=== PATIENT | male | born 1950 | race Caucasian/White ===

== ENCOUNTER 2018-09-16 16:04 | Inpatient (IN) ==
[2018-09-16] MEDS ORDERED: SILVADENE CREAM TP STA (16:44)
[2018-09-16 18:41] VITALS: BMI 39.4
[2018-09-16] MEDS ORDERED: [UNRECOGNIZED DRUG - MIXTURE] IV SCH (20:30)
[2018-09-16] MEDS ORDERED: SILVER SULFADIAZINE TP SCH (20:30)
[2018-09-16] MEDS ORDERED: ROCEPHIN 2 GM/50 ML D5W 2 GM in PREMIX 50 ML D5W 1 BAG IV SCH (20:30)
[2018-09-16] MEDS ORDERED: CEFTRIAXONE 2 GM/50 ML IV ONE (20:35)
[2018-09-16] MEDS ORDERED: DEXTROSE IV ONE (20:35)
[2018-09-16] MEDS ORDERED: POTASSIUM CHLORIDE 10 MEQ VIAL- ADDITIVE ONLY IV ONE (20:38)
[2018-09-16] MEDS: VANCOMYCIN 1 GM in SODIUM CHLORIDE 250 ML IV SCH (21:51)
[2018-09-16] MEDS: OXYCODONE PO PRN (23:18)
[2018-09-17] MEDS ORDERED: SILVADENE CREAM TP ONE (00:29)
[2018-09-17] MEDS: VANCOMYCIN 1 GM in SODIUM CHLORIDE 250 ML IV SCH (05:04)
[2018-09-17] MEDS ORDERED: [UNRECOGNIZED DRUG - MIXTURE] IV SCH (07:30)
[2018-09-17] MEDS: SILVADENE CREAM TP SCH (12:47)
[2018-09-17] MEDS: OXYCODONE PO PRN ×2 (13:00→17:18)
[2018-09-17] MEDS: VANCOMYCIN 1.5 GM in SODIUM CHLORIDE 500 ML IV SCH (17:11)
[2018-09-17] MEDS: ROCEPHIN 2 GM/50 ML D5W 2 GM in PREMIX 50 ML D5W 1 BAG IV SCH (20:16)
[2018-09-17] MEDS ORDERED: LOVENOX SUBCUT STA (22:54)
[2018-09-18] MEDS: VANCOMYCIN 1.5 GM in SODIUM CHLORIDE 500 ML IV SCH ×2 (04:41→17:06)
[2018-09-18] MEDS: SILVADENE CREAM TP SCH (08:16)
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
--- NOTE | 2018-09-18 13:01 | PN ---
DATE OF SERVICE: 09/17/18 SUBJECTIVE: 67 year old male was admitted to the hospital because of moderate fever of 102.6 with 2nd degree shaikh some deeper on both legs more or less circumferential. Legs were treated with Silvadene cream. VITALS: Fever 99.2, pulse 78, blood pressure 129/81, respiratory rate 18 and oxygen saturation 97 at room air. Debridement with carried aseptically. The skin was removed using curved scissors including curved iris scissors. The area was irrigated with sterile water and sterile saline. After the debridement and irrigation was done the nurse was instructed to apply Silvadene in all the area that are open. This patient will be carried on the same antibiotics until we obtain the culture and sensitivity. The patient's appetite yesterday showed a 100% of supper. 100% of breakfast today and 100% lunch. LUNGS: Clear to auscultation. LOWER EXTREMITIES: Pedal pulses were present anteriorly. The patient did receive Tetanus Diphtheria booster in the emergency room . He was prescribed Cephalexin to go home. He took one dose on 09/16/18. MTDD
[2018-09-19] MEDS: ROCEPHIN 2 GM/50 ML D5W 2 GM in PREMIX 50 ML D5W 1 BAG IV SCH (00:22)
[2018-09-19] MEDS: LOVENOX SUBCUT SCH ×2 (00:22→20:22)
[2018-09-19] MEDS: VANCOMYCIN 1.5 GM in SODIUM CHLORIDE 500 ML IV SCH (04:54)
[2018-09-19] MEDS: OXYCODONE PO PRN (06:42)
[2018-09-19] MEDS: SILVADENE CREAM TP SCH (08:19)
[2018-09-19] MEDS ORDERED: DILAUDID 1 MG/ML SYRINGE IVP STA ×2 (08:53→09:22)
[2018-09-19] MEDS: SILVADENE CREAM TP PRN ×2 (11:00→17:51)
[2018-09-19] MEDS: OXYCODONE PO SCH ×2 (11:48→17:39)
[2018-09-19] MEDS ORDERED: PHENERGAN SUPP RC PRN (12:35)
[2018-09-19] MEDS: VANCOMYCIN 1 GM in SODIUM CHLORIDE 250 ML IV SCH (17:09)
[2018-09-20] MEDS: VANCOMYCIN 1 GM in SODIUM CHLORIDE 250 ML IV SCH ×2 (00:35→08:00)
[2018-09-20] MEDS: OXYCODONE PO SCH ×4 (00:35→17:12)
[2018-09-20] MEDS: SILVADENE CREAM TP SCH (08:08)
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
[2018-09-20] MEDS ORDERED: INFUVITE ADULT IV ONE (15:41)
[2018-09-20] MEDS: INFUVITE ADULT 10 ML in D5%-1/2NS-KCL 20 MEQ/L IV SOL 1,000 ML IV SCH (15:42)
[2018-09-20] MEDS ORDERED: DEXTROSE IV ONE (21:00)
[2018-09-20] MEDS ORDERED: CEFEPIME 2 GM/50 ML IV ONE (21:00)
[2018-09-20] MEDS ORDERED: OXYCODONE PO STA (22:02)
[2018-09-20] MEDS: MAXIPIME 2 GM/50 ML D5W 2 GM in PREMIX 50 ML D5W 1 BAG IV SCH (22:04)
[2018-09-20] MEDS: LOVENOX SUBCUT SCH (22:05)
[2018-09-21] MEDS: OXYCODONE PO SCH ×4 (01:00→18:03)
[2018-09-21] MEDS ORDERED: INFUVITE ADULT IV ONE ×2 (01:37→12:24)
[2018-09-21] MEDS: INFUVITE ADULT 10 ML in D5%-1/2NS-KCL 20 MEQ/L IV SOL 1,000 ML IV SCH ×2 (01:39→12:31)
[2018-09-21] MEDS ORDERED: CEFEPIME 2 GM/50 ML IV ONE (04:52)
[2018-09-21] MEDS ORDERED: DEXTROSE IV ONE (04:52)
[2018-09-21] MEDS: MAXIPIME 2 GM/50 ML D5W 2 GM in PREMIX 50 ML D5W 1 BAG IV SCH ×3 (04:55→20:35)
[2018-09-21] MEDS ORDERED: PERCOCET 5-325 PO STA (08:40)
[2018-09-21] MEDS ORDERED: OXYCODONE PO STA (08:42)
[2018-09-21] MEDS ORDERED: SILVADENE CREAM TP PRN ×2 (11:00)
--- NOTE | 2018-09-21 11:00 | PN ---
DATE OF SERVICE: 09/20/18 SUBJECTIVE: Today his temperature is 99.7, pulse rate 103, blood pressure 144/86, 02 sat 96 % on room air. This morning I got a call saying that he had spiked a temperature of 100.8. He was having chills in the room and overall has not been feeling good with having some pretty significant pain when he was up to the bathroom with his lower extremities. The nurse reports that he was oozing quite a bit to his lower extremity. He was having a difficult time keeping Silvadene ointment on to his lower extremity. PHYSICAL EXAMINATION: HEENT: Head normocephalic, atraumatic. Eyes: Extraocular muscles are intact. Pupils are equal, round and reactive to light and accommodation. Ears: No lesions. Nose appeared normal. Throat: No exudate or erythema. NECK: Supple. No JVD, no carotid bruit. No lymphadenopathy or thyromegaly. LUNGS: Clear to auscultation. Percussion note normal. Chest symmetrical. HEART: Regular rate and rhythm. S1, S2, no S3. No murmurs. No cyanosis or clubbing. No ascites. Pulses: Dorsalis pedis and posterior tibial pulses +1 to +2 bilaterally. ABDOMEN: Soft. Nontender. Bowel sounds active. No CVA tenderness. No mass felt. EXTREMITIES: No edema. Full range of motion of all extremities, equal. NEUROLOGIC: No focal deficit. Cranial nerves II through XII are grossly intact. No headache, no double vision or headache. SKIN: Not dry. Intact. Turgor - normal. LYMPHATIC: No palpable lymph nodes/no lymphedema. MUSCULOSKELETAL: Normal joints with no swelling. Muscle tone is normal. PLAN: Dr. Fam has ordered an echocardiogram. Blood cultures have been done immediately when the fever was called [place] Spotted Fever. IgG and IGM was also completed this morning. Tick titers were completed and drawn this morning. IV fluids have also been ordered, D5 1/2 NS at 100 mls/hr. As far as labs they were drawn this morning. White count was down to normal 8.78. Hemoglobin 12.9, hematocrit 39.1, platelet count 224. The sodium 140.7, BUN 13.9 , creatinine 1.04. LFTs were normal with exception of alkaline phosphatase of 53.2 which is mildly low. Procalcitonin has been normal at 0.14. Urinalysis was negative with trace hematuria done today. Otherwise it was negative. Vascular and soft tissue ultrasounds were ordered of the lower extremities. The patient refused for these ultrasounds to be completed due to the concern for pain. Dr. Fam does plan to debride the lower extremity blisters and wounds and open wounds to the lower extremities this afternoon. There are several blisters that are intact to the lower extremities. The lower extremities are continuously oozing and draining. There is some Silvadene in place to the lower extremity. There is copious amount of drainage to the lower extremities. TIME SPENT: More than 30 minutes. Plan and coordination of the patient's care discussed in the presence of nurse. BLOSSOM
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
[2018-09-21] MEDS: LOVENOX SUBCUT SCH (20:36)
[2018-09-22] MEDS ORDERED: MAG-OX ONE (00:25)
[2018-09-22] MEDS: MAG-OX PO SCH ×3 (00:27→21:37)
[2018-09-22] MEDS: OXYCODONE PO SCH ×4 (00:27→17:15)
[2018-09-22] MEDS: INFUVITE ADULT 10 ML in D5%-1/2NS-KCL 20 MEQ/L IV SOL 1,000 ML IV SCH (00:55)
[2018-09-22] MEDS: SILVADENE CREAM TP SCH (01:01)
[2018-09-22] MEDS: MAXIPIME 2 GM/50 ML D5W 2 GM in PREMIX 50 ML D5W 1 BAG IV SCH ×3 (05:40→21:36)
[2018-09-22] MEDS ORDERED: SILVADENE CREAM TP SCH (09:00)
[2018-09-22] MEDS: OXYCODONE PO PRN ×2 (15:46→21:43)
[2018-09-22] MEDS: LOVENOX SUBCUT SCH (21:44)
[2018-09-23] MEDS: OXYCODONE PO SCH ×5 (00:50→23:50)
[2018-09-23] MEDS: MAXIPIME 2 GM/50 ML D5W 2 GM in PREMIX 50 ML D5W 1 BAG IV SCH ×2 (04:36→13:17)
[2018-09-23] MEDS: OXYCODONE PO PRN (08:52)
[2018-09-23] MEDS: MAG-OX PO SCH ×2 (08:53→21:27)
[2018-09-23] MEDS ORDERED: OXYCODONE PO STA (15:26)
[2018-09-23] MEDS ORDERED: OXYCONTIN ONE (15:31)
[2018-09-23] MEDS ORDERED: OXYCONTIN PO SCH (16:00)
[2018-09-23] MEDS: LOVENOX SUBCUT SCH (21:28)
[2018-09-24] MEDS: OXYCODONE PO SCH ×3 (05:15→17:19)
[2018-09-24] MEDS: MAG-OX PO SCH ×2 (08:49→21:01)
[2018-09-24 13:57] VITALS: BP 120/79; TEMP 99
[2018-09-24] MEDS ORDERED: OXYCODONE PO STA (20:38)
[2018-09-24] MEDS: LOVENOX SUBCUT SCH (21:00)
[2018-09-24] MEDS ORDERED: MAXIPIME 2 GM/50 ML D5W 2 GM in PREMIX 50 ML D5W 1 BAG IV SCH (22:00)
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
--- NOTE | 2018-09-29 11:45 | PN ---
DATE OF SERVICE: 09/20/18 SUBJECTIVE: The patient's shaikh were debrided today. It took two hours for both legs. Both legs were cleaned with the shower. Sterile 4x4 was passed up and down the leg that shaikh to remove some of the debris. After this was accomplished the patient was then returned to bed with sterile linens. Debridement was carried to the rest of the burned areas. After this was done the burn area was covered with Silvadene and then covered with Telfa and anchored using a Ruben followed by a Coban. Same procedure is done on the left side. It took two hours to do the procedure. The patient tolerated the procedure well. LUNGS: Clear to auscultation HEART: Audible and regular with good tones. The patient's vital signs 09:14pm 09/20/18 showed a temperature 98.8, pulse 94, blood pressure 154/89, respiratory rate 20, oxygen saturation 98% room air. The patient is receiving 2 grams of Cefepime and also Lovenox 40mg SUBCUT. There is some areas of deeper 2nd degree shaikh. There is no signs of any active infection. The patient was encouraged to walk around the room or even outside with the dressing in place. BLOSSOM
--- NOTE | 2018-09-29 13:36 | PN ---
DATE OF SERVICE: 09/21/18 SUBJECTIVE: Debridement was also carried but limited. The area was cleaned using sterile saline that is warm slightly. After debridement Silvadene cream was applied with 4x4 and Ruben and also Coban. It took about an hour to do the procedure. The patient is alert and oriented times four, not dyspneic or tachypneic and no cyanosis. VITALS: Temperature 98, pulse 87, blood pressure 144/89, respiratory rate 18 and oxygen saturation 100 at room air. This patient's temperature has a low grade rise 99.1 otherwise it was normal. Wound looks clean. Some of the areas were picked out and debrided. He still has pain on the areas that are stuck underneath. WILMARD
--- NOTE | 2018-09-29 13:49 | PN ---
DATE OF SERVICE: 09/22/18 SUBJECTIVE: The area again was irrigated with saline and the rest of the skin that is lose was removed. The area was then cleaned further and irrigated with saline and dried. The are was dressed a sterile Ruben. No other dressing was applied and this will be removed tomorrow hoping to remove some of the debris when the Ruben is removed. VITALS: Temperature 98.0, pulse 87, blood pressure 144/89, respiratory rate 18, oxygen saturation 100%. His breakfast 100%, 100% of lung and 100% at supper. LUNGS: Clear to auscultation HEART: Normal sinus rhythm ABDOMEN: Unremarkable. No external signs of infection of the burned area. MTDD
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
--- NOTE | 2018-10-31 13:35 | PN ---
DATE OF SERVICE: 09/22/18 SUBJECTIVE: Today Mr. Ramos is up in the hallway walking. His lower extremities are wrapped. He reports that overall he feels much better. He tells me that Dr. Fam did a debridement last PM around 10pm. LUNGS: Clear HEART: Irregular rate and rhythm His says his lower extremities are still painful but he feels that over all they are improving as he is able to walk up and down the hallway and they feel better because they are wrapped and he does feel that they are looking better. The pain medications do help to control the pain. VITAL SIGNS: Stable, temperature 99.1, pulse rate 95, blood pressure 145/77, respiratory rate 18 and oxygen saturation 97% on room air. The plan at this time is for the patient to shower. I did discuss that with the nurse and to perform a dressing change. Dr. Fam just shortly to perform a dressing change and we maybe discharging the patient home with plans for dressing changes in the office daily. We will see what the patient's lower extremities look like today. BLOSSOM
== END 2018-09-24 21:15 | disposition home or self-care (01) | DRG 935 ==
LOC: ED 16:04 → MEDSURG B 18:10
PROVIDERS: ADMIT General Practice; ATTEND General Practice
DX: K31.1 Adult hypertrophic pyloric stenosis; R50.9 Fever, unspecified; M79.661 Pain in right lower leg; T24.201A Burn of second degree of unspecified site of right lower limb, except ankle and foot, initial encounter; M79.662 Pain in left lower leg